=== PATIENT | female | born 1935 | race Caucasian/White ===

== ENCOUNTER 2022-02-10 12:59 | Outpatient (CLI) | payer MEDICARE, OTHER | END 2022-02-10 23:59 | disposition home health service (06) | LOC: WOU 12:59 | PROVIDERS: ATTEND Specialist | DX: S82.251D Displaced comminuted fracture of shaft of right tibia, subsequent encounter for closed fracture with routine healing (principal); W19.XXXD Unspecified fall, subsequent encounter; L98.492 Non-pressure chronic ulcer of skin of other sites with fat layer exposed; E11.9 Type 2 diabetes mellitus without complications; Z79.84 Long term (current) use of oral hypoglycemic drugs | CPT/HCPCS: G0463 ==

== ENCOUNTER 2022-02-17 13:30 | Outpatient (CLI) | payer MEDICARE, OTHER | END 2022-02-17 23:59 | disposition home health service (06) | LOC: WOU 13:30 | PROVIDERS: ATTEND Specialist | DX: S82.291D Other fracture of shaft of right tibia, subsequent encounter for closed fracture with routine healing (principal); X58.XXXD Exposure to other specified factors, subsequent encounter; E11.9 Type 2 diabetes mellitus without complications; Z79.4 Long term (current) use of insulin; I10 Essential (primary) hypertension | CPT/HCPCS: G0463 ==